=== PATIENT | male | born 1955 | race Caucasian/White ===

== ENCOUNTER 2016-10-08 12:08 | Emergency (ER) | payer SELFPAY ==
[2016-10-08] MEDS ORDERED: Lidocaine 1% 5ml(IM or SUTURE)(PAIN CLINIC) ONE (12:27)
--- NOTE | 2016-10-08 12:47 | ED Physician Documentation ---
General Adult - HISTORIAN Historian: patient - HPI Stated Complaint: LAC Chief Complaint: General Adult Onset: minutes Timing: still present Severity: mild Further Comments: yes (Pt is a 61 yo male with a facial laceration to his L cheek. Pt was using a wireless technician, when the tool and wire slipped and pt injured his face. Pt is unsure of tetanus status.) - ROS CONST: no problems EYES/ENT: none CVS/RESP: none GI/: none MS/SKIN/LYMPH: other (laceration L cheek) - PAST HX Past History: A-Fib, other (hernia repair) Allergies/Adverse Reactions: Allergies Allergy/AdvReac Type Severity Reaction Status Date / Time No Known Drug Allergies Allergy Verified 10/08/16 12:24 Home Medications: Ambulatory Orders Medication Instructions Recorded Aspirin 325 mg PO DAILY u2 07/28/14 Diltiazem HCl [Diltiazem 24hr Cd] 180 mg PO DAILY av 01/21/16 Lisinopril 5Mg [Prinivil] 5 mg PO BID u2 01/21/16 - SOCIAL HX Smoking History: cigarettes (e-cigarettes) - FAMILY HX Family History: No - VITAL SIGNS Vital Signs: Vital Signs Temp Pulse Resp BP Pulse Ox 88 18 123/68 98 10/08/16 12:08 10/08/16 12:08 10/08/16 12:08 10/08/16 12:08 - REVIEWED ASSESSMENTS Nursing Assessment Reviewed: Yes Vitals Reviewed: Yes Procedures Wound Location: face (L cheek) Wound Length: 2 cm Wound's Depth, Shape: superficial Wound Explored: clean Irrigated w/ Saline (ccs): 10 Betadine Prep?: No (Shur-clens used instead of betadine) Anesthesia: 1% Lidocaine Volume of Anesthetic: 3cc Wound Debrided: minimal Wound Repaired With: sutures Suture Size/Type: 5:0, nylon Number of Sutures: 2 Layer Closure?: No Sterile Dressing Applied?: No Progress - Progress Progress: Follow up with primary provider in 5 to 7 days for suture removal. Topical abx bid x 5 days. ED Results Lab/Radiology - Orders Orders: ED Orders Category Date Time Status Lidocaine 1% 5ml(IM or SUTURE) [Xylocaine] Med 10/08/16 12:27 Discontinued 50 mg .ROUTE .STK-MED ONE General Adult Physical Exam - PHYSICAL EXAM GENERAL APPEARANCE: no distress EENT: eye inspection normal NECK: normal inspection, supple RESPIRATORY: no resp distress BACK: normal inspection SKIN: other (2 cm facial laceration L cheek) NEURO: oriented X3 Discharge Clincal Impression: Facial laceration Qualifiers: Encounter type: initial encounter Qualified Code(s): S01.81XA - Laceration without foreign body of other part of head, initial encounter Referrals: Raymond Winters MD [Primary Care Provider] - Home Medications: Ambulatory Orders Aspirin 325 mg PO DAILY u2 07/28/14 Diltiazem HCl [Diltiazem 24hr Cd] 180 mg PO DAILY av 01/21/16 Lisinopril 5Mg [Prinivil] 5 mg PO BID u2 01/21/16 Condition: Good Disposition: 01 HOME, SELF-CARE Decision to Admit: NO Decision Time: 12:47
[2016-10-08] MEDS ORDERED: DIPH,PERTUSS(ACELL),TET VAC/PF 0.5 ML DISP.SYRIN IM ONE (12:49)
[2016-10-08] MEDS ORDERED: Lidocaine 1% 5ml(IM or SUTURE)(PAIN CLINIC) IJ ONE (12:52)
[2016-10-08] MEDS ORDERED: TRIPLE ANTIBIOTIC OINTMENT PAC 1 PACKET TOP PRN (13:00)
[2016-10-08 13:17] VITALS: BP 122/76
== END 2016-10-08 13:10 | disposition home or self-care (01) ==
LOC: ED 12:08
DX: S01.412A Laceration without foreign body of left cheek and temporomandibular area, initial encounter (principal); W27.8XXA Contact with other nonpowered hand tool, initial encounter; Y93.9 Activity, unspecified; Y92.9 Unspecified place or not applicable
CPT/HCPCS: 12011; 90471; 90715; 99283

== ENCOUNTER 2017-01-28 07:03 | Outpatient (CLI) | payer OTHER ==
[2017-01-28 07:45] LABS: eGFR (African) > 60; eGFR (Non-African) > 60
--- NOTE | 2017-01-28 14:09 | Diagnostic Imaging Report ---
ANNI REESE [facility] [id number] [facility].[address] [address] Report Submission Date: Jan 28, 2017 7:55:31 AM CDT Patient Study Name: SALENA HAQ V Date: Jan 28, 2017 7:24:19 AM CDT Modality Type: CR Gender: M Description: CHEST : 51 Institution: [facility] Physician: ANNI REESE Examination: PA and lateral chest. History: Evaluate lung gonsalves. Comparison exam: None available Findings: PA lateral chest demonstrate a normal cardiac and mediastinal silhouette. Minimal tortuosity of the thoracic aorta. No focal infiltrate. No effusion. No blunting of the costophrenic margins. Bilateral nipple shadows. Osseous structures are appropriate for age. Impression: No acute pulmonary process. Electronically signed on Jan 28, 2017 7:55:31 AM CDT by: Kaushal QUINTANILLA
== END 2017-01-28 07:04 ==
LOC: LAB 07:03
PROVIDERS: ATTEND Family Medicine
DX: I10 Essential (primary) hypertension (principal); I48.91 Unspecified atrial fibrillation; R06.02 Shortness of breath; Z12.5 Encounter for screening for malignant neoplasm of prostate
CPT/HCPCS: 36415; 71020; 80053; 80061; 84153; 85379

== ENCOUNTER 2017-04-07 08:44 | Outpatient (CLI) | payer OTHER ==
--- NOTE | 2017-04-07 13:11 | Diagnostic Imaging Report ---
ANNI REESE [facility] [address] [facility] [address] [address] Report Submission Date: Apr 07, 2017 9:16:31 AM [employer] Patient Study Name: SALENA HAQ V Date: Apr 07, 2017 8:54:30 AM [employer] Modality Type: CR Gender: M Description: UPPER EXTREMITY : 51 Institution: [facility] Physician: ANNI REESE Examination: Plain film hand History: Nodule on 3rd digit. Comparison exams: None available Findings: 3 views the hand demonstrate normal cortical margins. No fracture. No dislocation. Articular degenerative changes. Soft tissue fullness involving the proximal interphalangeal joint region of the 3rd digit. Impression: No acute osseous abnormality. Soft tissue nodule 3rd digit. Consider obtaining MRI to further evaluate. Electronically signed on Apr 07, 2017 9:16:31 AM [employer] by: Kaushal QUINTANILLA
== END 2017-04-07 09:00 ==
LOC: RAD 08:44
PROVIDERS: ATTEND Family Medicine
DX: R22.9 Localized swelling, mass and lump, unspecified (principal)
CPT/HCPCS: 73130

== ENCOUNTER 2017-08-25 09:35 | Outpatient (CLI) | payer OTHER ==
--- NOTE | 2017-08-25 10:20 | Diagnostic Imaging Report ---
HOOD LIZARRAGA [facility] [address] [facility].[address] [address] Report Submission Date: Aug 25, 2017 10:16:07 AM CDT Patient Study Name: SALENA HQA V Date: Aug 25, 2017 9:43:23 AM CDT Modality Type: DX Gender: M Description: UPPER EXTREMITY : 51 Institution: [facility] Physician: HOOD LIZARRAGA Examination: Plain film right finger. History: RT 3RD DIGIT - POSSIBLE METAL FRAGMENT FROM PRESIDENT ERGONOMIC CONSULTING (Hx) Comparison exams: None available Findings: 3 views the right 3rd digit demonstrates mild articular degenerative changes. No fracture. No dislocation. No soft tissue abnormality or foreign body. Impression: Mild degenerative changes. No acute appearing osseous abnormality. No soft tissue foreign body. Electronically signed on Aug 25, 2017 10:16:07 AM CDT by: Kaushal QUINTANILLA
== END 2017-08-25 09:36 ==
LOC: RAD 09:35
PROVIDERS: ATTEND Physician Assistant
DX: M79.644 Pain in right finger(s) (principal)
CPT/HCPCS: 73140

== ENCOUNTER 2017-10-05 10:50 | Outpatient (CLI) | payer OTHER ==
[2017-10-05 11:05] LABS: BASOPHILS % 0.5 (0.0-1.5); EOSINOPHILS % 3.7 % (0.0-6.8); MEAN CORPUSCULAR HEMOGLOBIN 31.3 pg (28.0-34.0); MEAN CORPUSCULAR VOLUME 93.4 fl (80.0-100.0); MONOCYTES % 7.6 % (0.0-11.0); NEUTROPHILS # 3.1 # k/uL (1.4-7.7)
[2017-10-05 19:20] LABS: TOTAL PROTEIN 7.3 g/dL (6.0-8.5)
== END 2017-10-05 10:52 ==
LOC: LAB 10:50
PROVIDERS: ATTEND Physician Assistant
DX: R19.7 Diarrhea, unspecified (principal)
CPT/HCPCS: 36415; 80053; 85025

== ENCOUNTER 2018-04-29 07:21 | Outpatient (CLI) | payer OTHER ==
[2018-04-29 08:19] LABS: eGFR (Non-African) 59
== END 2018-04-29 07:22 ==
LOC: LAB 07:21
PROVIDERS: ATTEND Family Medicine
DX: I48.91 Unspecified atrial fibrillation (principal); E78.00 Pure hypercholesterolemia, unspecified
CPT/HCPCS: 36415; 80053; 80061

== ENCOUNTER 2019-03-04 08:25 | Outpatient (CLI) | payer MEDICARE, OTHER | END 2019-03-04 08:40 | LOC: LAB 08:25 | PROVIDERS: ATTEND Family Medicine | DX: N40.0 Benign prostatic hyperplasia without lower urinary tract symptoms (principal) | CPT/HCPCS: 36415; 84153 ==